=== PATIENT | female | born 2000 | race Caucasian/White ===

== ENCOUNTER → 2023-09-03 | Outpatient (CLI) | payer OTHER, SELFPAY ==
--- OUTSIDE RECORDS SUMMARY | 2023-09-03 12:17 | XMS RPT_ITS | CCD ---
Author Name Unknown Address [address] [place] [address] Organization [facility] Care Team Providers Care Regional Marketing Manager Name Role Phone Jose CALLES, Kimberlee Thapa Primary Care Provider Medications Completed/Discontinued Medications Medication Drug Class(es) Dates Sig (Normalized) Sig (Original) acetaminophen 325 mg / guaiFENesin 200 mg / phenylephrine hydrochloride 5 mg oral tablet (1 source) alpha-1 Adrenergic Agonist Start: 11-15-2017 Phenylephrine-Rocky taminophen-GG (TYLENOL COLD HEAD CONGEST SEVR) 5-325-200 mg tab Indications: Viral URI with cough Take 1 Dose by mouth as directed. 30 tablet 0 11/15/2017 Active Problems Active Problems Problem Classification Problem Date Documented Da te Episodic/Chronic Other upper respiratory infections (1 source) Sore throat symptom; Translations: [Acute pharyngitis, unspecified] Episodic Residual codes; unclassified (1 source) Other specified personal risk factors, not elsewhere classified; Translations: [Other specified personal history presenting hazards to health] Episodic Past or Other Problems Problem Classification Problem Date Documented Da te Episodic/Chronic Other connective tissue disease (1 source) Patellar tendonitis; Translations: [Patellar tendinitis, unspecified knee] Onset: 11-07-2013 11-07-2013 Episodic Results Test Name Value Interpretation Reference Range Facil ity Vital Signs Date Time Vital Sign Value Performing Clinician Rubén chambers 06-04-2022 18:44-0500 Body temperature 99.19 [degF] Nettie Cardoza APRN.CNP Work Phone: [facility] 06-04-2022 18:44-0500 Body weight 82.28 kg Nettie Cardoza APRN.CNP Work Phone: [facility] 06-04-2022 18:44-0500 Diastolic blood pressure 84 mm[Hg] Nettie Cardoza APRN.CNP Work Phone: [facility] 06-04-2022 18:44-0500 Heart rate 143 /min Nettie Cardoza APRN.STONE ENGRAVER Work Phone: [facility] 06-04-2022 18:44-0500 Respiratory rate 18 /min Nettie Cardoza APRN.STONE ENGRAVER Work Phone: [facility] 06-04-2022 18:44-0500 SaO2% (BldA) [Mass fraction] 98 % Nettie Cardoza APRN.STONE ENGRAVER Work Phone: [facility] 06-04-2022 18:44-0500 Systolic blood pressure 130 mm[Hg] Nettie Cardoza APRN.CNP Work Phone: [facility] Encounters Encounter Date Encounter Type Care Provider Facility Start: 06-04-2022 End: 06-04-2022 ambulatory KIMBERLEE MACARIO HASWELL Facility:[facility] Start: 06-04-2022 End: 06-04-2022 Patient encounter procedure Nettie Cardoza APRN.CNP Work Phone: [facility] Procedures Date Procedure Procedure Detail Performing Clinician Start: 06-04-2022 STREP A MOLECULAR (POC) Nettie Cardoza APRN.CNP Work Phone: Plan of Treatment Date Care Activity Detail Author Start: 06-04-2022 End: 06-18-2022 Influenza virus A and B RNA and SARS-CoV-2 (COVID-19) N gene panel - Respiratory specimen by ROSALBA with probe detection COVID WITH FLUA+B, ROUTINE Microbiology Routine Sore throat At increased risk of exposure to COVID-19 virus Expected: 06/04/2022, Expires: 06/18/[address] [facility] Work Phone: Immunizations Immunization Date Immunization Notes Care Provider Priscila phipps 05-29-2015 influenza, live, intranasal, quadrivalent Nettie Cardoza APRN.CNP Work Phone: [facility] 12-01-2012 human papilloma viru s vaccine, quadrivalent Nettie Cardoza APRN.STONE ENGRAVER Work Phone: [facility] 07-25-2012 human papilloma viru s vaccine, quadrivalent Nettie Cardoza APRN.STONE ENGRAVER Work Phone: [facility] 05-13-2012 human papilloma viru s vaccine, quadrivalent Nettie Cardoza APRN.STONE ENGRAVER Work Phone: [facility] 05-13-2012 influenza virus vaccine, live, attenuated, for intranasal use Nettie Cardoza APRN.STONE ENGRAVER Work Phone: [facility] 01-25-2012 Meningococcal, MCV4, unspecified conjugate formulation(groups A, C, Y and W-135) Nettie Cardoza APRN.STONE ENGRAVER Work Phone: [facility] 01-25-2012 tetanus toxoid, redu blake diphtheria toxoid, and acellular pertussis vaccine, adsorbed Nettie Cardoza APRN.STONE ENGRAVER Work Phone: [facility] 01-25-2012 varicella virus vaccine Amie Cardoza APRN.STONE ENGRAVER Work Phone: [facility] 06-22-2005 diphtheria, tetanus toxoids and acellular pertussis vaccine Nettie Cardoza APRN.[facility] Work Phone: [facility] Work Phone: 06-22-2005 influenza virus vaccine, unspecified formulation Ntetie Cardoza APRN.STONE ENGRAVER Work Phone: [facility] Work Phone: 06-22-2005 measles, mumps and rubella virus vaccine Nettie Cardoza APRN.STONE ENGRAVER Work Phone: [facility] Work Phone: 06-22-2005 poliovirus vaccine, inactivated Nettie Cardoza APRN.STONE ENGRAVER Work Phone: [facility] Work Phone: 06-02-2002 influenza virus vaccine, unspecified formulation Nettie Cardoza APRN.STONE ENGRAVER Work Phone: [facility] 03-03-2002 diphtheria, tetanus toxoids and acellular pertussis vaccine Nettie Sony RAILROAD SURVEYOR.STONE ENGRAVER Work Phone: [facility] 03-03-2002 haemophilus influenz ae type b vaccine, HbOC conjugate Nettie James RAILROAD SURVEYOR.STONE ENGRAVER Work Phone: [facility] 12-02-2001 hepatitis B vaccine, pediatric or pediatric/adolescent dosage Nettie James RAILROAD SURVEYOR.STONE ENGRAVER Work Phone: [facility] 12-02-2001 measles, mumps and rubella virus vaccine Nettie Sony RAILROAD SURVEYOR.STONE ENGRAVER Work Phone: [facility] 12-02-2001 varicella virus vaccine Amie nikieran Cardoza RAILROAD SURVEYOR.STONE ENGRAVER Work Phone: [facility] 06-03-2001 diphtheria, tetanus toxoids and acellular pertussis vaccine Nettie James RAILROAD SURVEYOR.STONE ENGRAVER Work Phone: [facility] 06-03-2001 haemophilus influenz ae type b vaccine, HbOC conjugate Nettie Cardoza RAILROAD SURVEYOR.STONE ENGRAVER Work Phone: [facility] 06-03-2001 poliovirus vaccine, inactivated Nettie James RAILROAD SURVEYOR.STONE ENGRAVER Work Phone: [facility] 04-04-2001 diphtheria, tetanus toxoids and acellular pertussis vaccine Nettie James RAILROAD SURVEYOR.STONE ENGRAVER Work Phone: [facility] 04-04-2001 haemophilus influenz ae type b vaccine, HbOC conjugate Nettie Cardoza RAILROAD SURVEYOR.STONE ENGRAVER Work Phone: [facility] 04-04-2001 poliovirus vaccine, inactivated Nettie James RAILROAD SURVEYOR.STONE ENGRAVER Work Phone: [facility] 02-04-2001 diphtheria, tetanus toxoids and acellular pertussis vaccine Nettie James RAILROAD SURVEYOR.STONE ENGRAVER Work Phone: [facility] 02-04-2001 haemophilus influenz ae type b vaccine, HbOC conjugate Nettie James RAILROAD SURVEYOR.STONE ENGRAVER Work Phone: [facility] 02-04-2001 hepatitis B vaccine, pediatric or pediatric/adolescent dosage Nettie James RAILROAD SURVEYOR.STONE ENGRAVER Work Phone: [facility] 02-04-2001 poliovirus vaccine, inactivated Nettie Sony RAILROAD SURVEYOR.STONE ENGRAVER Work Phone: [facility] 2000 hepatitis B vaccine, pediatric or pediatric/adolescent dosage Nettie Cardoza APRN.STONE ENGRAVER Work Phone: [facility] Payers Date Payer Category Payer Medicaid [facility] 06/17 [facility] [id number] 2011-2022 [address] [place] [address] Medicaid 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 angelica [id number] (ASIF)_EUA This test was developed and its performance characteristics determined by [facility]'s [facility] [place]. This test has been authorized by FDA under an Emergency Use Authorization (EUA). This test has been validated in accordance with the FDA's Guidance Document Policy for Diagnostics Testing in Laboratories Certified to Perform High Complexity Testing under CLIA prior to Emergency use Authorization for Coronavirus Disease 2019 during the Public Health Emergency issued on September 16, 2019. Test performed by [facility], [facility] [place], [address], [place] [address]. INFLUENZA A PCR: Negative for Influenza A by RT-PCR INFLUENZA B PCR: Negative for Influenza B by RT-PCR [facility] Progress note 06-04-2022 Note Date & Type Note Facility 06-04-2022 Note HNO ID: [id number] Author: Nettie Cardoza APRN.STONE ENGRAVER Service: ? Author Type: Nurse Practitioner Type: Progress Notes Filed: 06/04/2022 6:53 PM Note Text: CC: Patient presents with: Sore Throat: Coley , x1 day Tested negative for covid, heart rate 118 manually HPI: Bethany Estrada is a 21 year old female who presents to the office with complaint of sore throat and chills, bodyaches for the past day. Symptoms are staying the same. Associated symptoms includes headache. Denies cough, nausea, vomiting , and diarrhea. Treatments tried include nothing so far. with no relief of symptoms. Sick contacts: unknown. History of asthma, frequent episodes of bronchitis, chronic bronchitis, bronchiectasis or COPD: No Smoker: No Seasonal/environmental allergies: No The ROS is otherwise negative. The patient's pmh, medications, allergies, and past visits are reviewed. PHYSICAL EXAM: BP 130/84 Pulse (!) 143 Temp 37.3 ?C (99.2 ?F) Resp 18 Wt 82.3 kg (181 lb 6.4 oz) LMP 06/04/2022 SpO2 98% General appearance: alert, cooperative, pleasant, in no acute distress Head: Normocephalic Eyes: EOM's intact, conjunctiva pink and moist, no icterus, sclera white, non-injected Ears: Right ear: External ear/canal- Normal, TM - clear with good landmarks. Left ear: External ear/canal- Normal, TM - clear with good landmarks Oropharynx:moderate erythema, with exudates present +2 Heart: Negative. RRR without obvious murmur, gallop, or rubs. No ectopy. 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 MEDICATIONS VOLNEA, 28, 0.15-0.02 mgx21 /0.01 mg x 5 per tablet Take 1 tablet by mouth once daily. Ncpefudvwqwsi-Mskwimzbefpeu-SF (TYLENOL COLD HEAD CONGEST SEVR) 5-325-200 mg tab Take 1 Dose by mouth as directed. (Patient not taking: Reported on 04/01/2018 ) JULEBER 0.15-0.03 mg per tablet phenazopyridine (PYRIDIUM) 200 mg tablet TO BE TAKEN DIRECTED BY MOUTH ONE(1) TABLET THREE TIMES DAILY X 2 DAYS (Patient not taking: Reported on 11/15/2017 ) FAMILY HISTORY Problem Relation Age of Onset Diabetes Maternal Grandmother Cancer Maternal Grandfather Lung Cancer Maternal Grandmother Peritoneal Breast Cancer Other Maternal Great GM Social History Tobacco Use Smoking status: Never Smokeless tobacco: Never Substance Use Topics Alcohol use: No Drug use: No ASSESSMENT/PLAN: 1. Sore throat - ICD9: 462, ICD10: J02.9 - STREP A MOLECULAR (POC) - negative Viral test pending. Prescription instructions reviewed with patient as applicable. Potential red flag symptoms discussed with the patient. Reviewed appropriate action plan to take if red flag symptoms occur. Patient agreeable to treatment plan. Nettie Cardoza APRN.[facility] History of Present illness Narrative 06-04-2022 Nettie Cardoza APRN.[facility] - 06/04/2022 6:46 PM EST Note Date & Type Note Facility 06-04-2022 History of Presen t illness Narrative CC: Patient presents with: Sore Throat: Coley , x1 day Tested negative for covid, heart rate 118 manually HPI: Bethany Estrada is a 21 year old female who presents to the office with complaint of sore throat and chills, bodyaches for the past day. Symptoms are staying the same. Associated symptoms includes headache. Denies cough, nausea, vomiting , and diarrhea. Treatments tried include nothing so far. with no relief of symptoms. Sick contacts: unknown. History of asthma, frequent episodes of bronchitis, chronic bronchitis, bronchiectasis or COPD: No Smoker: No Seasonal/environmental allergies: No The ROS is otherwise negative. The patient's pmh, medications, allergies, and past visits are reviewed. PHYSICAL EXAM: BP 130/84 Pulse (!) 143 Temp 37.3 C (99.2 F) Resp 18 Wt 82.3 kg (181 lb 6.4 oz) LMP 06/04/2022 SpO2 98% General appearance: alert, cooperative, pleasant, in no acute distress Head: Normocephalic Eyes: EOM's intact, conjunctiva pink and moist, no icterus, sclera white, non-injected Ears: Right ear: External ear/canal- Normal, TM - clear with good landmarks. Left ear: External ear/canal- Normal, TM - clear with good landmarks Oropharynx:moderate erythema, with exudates present +2 Heart: Negative. RRR without obvious murmur, gallop, or rubs. No ectopy. 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 MEDICATIONS VOLNEA, 28, 0.15-0.02 mgx21 /0.01 mg x 5 per tablet Take 1 tablet by mouth once daily. Zxuuwrucsxtid-Kumtkxllsxxcn-MM (TYLENOL COLD HEAD CONGEST SEVR) 5-325-200 mg tab Take 1 Dose by mouth as directed. (Patient not taking: Reported on 04/01/2018 ) JULEBER 0.15-0.03 mg per tablet phenazopyridine (PYRIDIUM) 200 mg tablet TO BE TAKEN DIRECTED BY MOUTH ONE(1) TABLET THREE TIMES DAILY X 2 DAYS (Patient not taking: Reported on 11/15/2017 ) FAMILY HISTORY Problem Relation Age of Onset Diabetes Maternal Grandmother Cancer Maternal Grandfather Lung Cancer Maternal Grandmother Peritoneal Breast Cancer Other Maternal Great GM Social History Tobacco Use Smoking status: Never Smokeless tobacco: Never Substance Use Topics Alcohol use: No Drug use: No ASSESSMENT/PLAN: 1. Sore throat - ICD9: 462, ICD10: J02.9 - STREP A MOLECULAR (POC) - negative Viral test pending. Prescription instructions reviewed with patient as applicable. Potential red flag symptoms discussed with the patient. Reviewed appropriate action plan to take if red flag symptoms occur. Patient agreeable to treatment plan. Nettie Cardoza APRN.STONE ENGRAVER documented in this encounter [facility] Evaluation note Note Date & Type Note Facility documented in this encounter [facility] Health Concerns Infection Onset Date Last Indicated Resolved Time COVID-19 Rule-Out 06/04/2022 06/04/2022 Summary Purpose Family History No Family History Records Found Advance Directives No Advanced Directives Records Found Additional Source Comments Source Comments (unrecognize d section and content) In the event this informatio n is protected by the Federal Confidentiality of Alcohol and Drug Abuse Patient Records regulations: The Federal rules restrict any use of the information to criminally investigate or prosecute any alcohol or drug abuse patient.[facility] Reason for Visit (unrecogniz ed section and content) Care Teams (unrecognized sec tion and content) INFORMATION SOURCE (unrecogn ized section and content) FOR RECORDS PERTAINING TO PATIENTS WHO ARE OR HAVE BEEN ENROLLED IN A CHEMICAL DEPENDENCY/SUBSTANCEABUSE PROGRAM, SOME INFORMATION MAY BE OMITTED. This clinical summary was aggregated from multiple sources. Caution should be exercised in using it in the provision of clinical care. This summary normalizes information from multiple sources, and as a consequence, information in this document may materially change the coding, format and clinical context of patient data. In addition, data may be omitted in some cases. CLINICAL DECISIONS SHOULD BE BASED ON THE PRIMARY CLINICAL RECORDS. [employer] [facility]. provides no warranty or guarantee of the accuracy or completeness of information in this document.
[2023-09-03 15:49] LABS: Hematocrit 37.3 % (37-47); Hemoglobin 12.1 g/dL (12.0-15.0)
[2023-09-03 16:20] LABS: Creatinine, Serum 0.88 mg/dL (0.55-1.02); EST Glomerular Filtration Rate 85 mL/min (>60); Est Glom Filt Rate - Afr Amer 102 mL/min (>60); Ferritin 61 ng/mL (8-252)
[2023-09-08 11:09] LABS: Chlamydia By Nucleic Acid AMP Negative (Negative); Gonococcus By Nucleic Acid AMP Negative (Negative); Trich. Vag By Nucleic Acid AMP Negative (Negative)
[2023-09-09 21:24] LABS: HPV HIGH RISK 16/18 Negative; HPV Reflexed? YES, CHARGE PATIENT
== END | disposition home or self-care (01) ==
PROVIDERS: PCP Family Medicine; Visit Provider Family Medicine
DX: Z12.4 Encounter for screening for malignant neoplasm of cervix (principal); N94.6 Dysmenorrhea, unspecified; E61.1 Iron deficiency
CPT/HCPCS: 36415; 82565; 82728; 85014; 85018; 87491; 87591; 87624; 88175; G0145